=== PATIENT | female | born 1955 | race Two or more races ===

== ENCOUNTER → 2020-03-28 | Outpatient (CLI) | payer SELFPAY ==
[2020-03-28 14:34] VITALS: BP 134/63
--- NOTE | 2020-03-28 14:34 | ER RDC ASSESSMENT REPORT ---
Intake - In the Last 14 days Have you traveled outside [place]?: Yes --Country (if outside [place]) [[id number]]: Patient from [place] back to [place] Have you been in close contact with someone CONFIRMED: No Worked in Healthcare?: No - Symptoms Subjective Fever([place] feverish): No Chills: No Muscule Aches: No Runny Nose: No Sore Throat: No Cough (New or worsening chronic cough): No Shortness of breath: No Nausea or Vomiting: No Headache: No Abdominal Pain: No Diarrhea(3 or more loose stools in last 24 hours): No - Do you have any of the following Chronic lung disease: Asthma or emphysema or COPD: No Cystic Fibrosis: No Diabetes: No High Blood Pressure: No Cardiovascular Disease: No Chronic Kidney Disease: No Chronic Liver Disease: No Chronic blood disorder like Sickle Cell Disease: No Weak immune system due to disease or medication: No Neurologic condition that limits movement: No Developmental delay - Moderate to Severe: No Recent (within past 2 weeks) or current : No Morbid Obesity (>100 pounds over ideal weight): No Obesity Comment: Height 4 feet 11 inches weight 175 pounds - Objective Temperature: 97.2 F Pulse Rate: 76 Respiratory Rate: 16 Blood Pressure: 134/63 O2 Sat by Pulse Oximetry: 95 Objective: Given above, testing performed: If Testing Performed: Test Specimen Type Sent to General - General Information source: Patient, Relative Notes: Patient here at [facility] for cover testing denies any known exposure to COVID positive persons patient is here from [place] and returning back to [place] and requires a COVID test to travel. Patient is asymptomatic Past Medical History - General Information source: Patient, Relative - Social History Smoking Status: Never Smoker Physical Exam - General General appearance: Appears well, Alert In distress: None Notes: PHYSICAL EXAMINATION: GENERAL: Well-appearing and in no acute distress. HEAD: Atraumatic, normocephalic. EYES: sclera anicteric, conjunctiva are normal. ENT: nares patent. Moist mucous membranes. NECK: Normal range of motion, supple without lymphadenopathy LUNGS: CTAB and equal. No wheezes rales or rhonchi. Respirations even and unlabored lung sounds clear. HEART: Regular rate and rhythm without murmurs ABDOMEN: Soft, nontender, normal bowel sounds, no guarding. EXTREMITIES: No cyanosis. NEUROLOGICAL: Normal speech. PSYCH: Normal mood, normal affect. SKIN: Warm, Dry, normal turgor, Diagnostic Results Laboratory Results: Pending cover testing results. Patient bided instructions regarding code to include: As a person under investigation for Covid 19, the [facility] of Health and Human Services, division of public health advises you to adhere to the following guidance until your test results are reported to you. If your test result is positive, you will receive additional information from your provider and your local health department at that time. Remain at home until you are cleared by the health provider or public health authorities. Keep a log of visitors to your home, notify any visitors to your home of your isolation status. If you plan to move to a new address or leave the community health, notify the local health department in your County. Call your doctor or seek care if you have an urgent medical need. Before seeking medical care, call ahead to get instructions from the provider before arriving at the medical office clinic or hospital. Notify them that you are being tested for the virus that causes Covid 19 so that arrangements can be made, as necessary, to prevent transmission to others in the healthcare setting. Next, notify the local health department in your community health. If a medical emergency arises and you need to call 911, inform the first responders that you are being tested for the virus that causes Covid 19. Next, notify the local health department in your community health. Patient Education/Counseling Counseling/Education: Patient presents with upper respiratory symptoms worrisome for possible Covid 19. Patient does not have emergency worring symptoms such as difficulty breathing, shortness of breath, chest pain, pressure, confusion or cyanosis. Patient appears suitable for discharge. Patient instructed to follow-up with PCP when returns to [place]. Patient's vital signs are stable and patient is nontoxic in appearance. Good return precautions have been discussed with patient, patient verbalized understanding and is agreeable with discharge plan of care at this time. C Discharge - Discharge Clinical Impression: Encounter for screening laboratory testing for COVID-19 virus in asymptomatic patient Condition: Stable Disposition: Home; Selfcare
== END ==
LOC: RDC 14:02
PROVIDERS: ATTEND Nurse Practitioner Family
DX: Z03.818 Encounter for observation for suspected exposure to other biological agents ruled out (principal)
CPT/HCPCS: 87635; C9803; 99201